=== PATIENT | male | born 1980 | race Caucasian/White ===

== ENCOUNTER 2023-12-25 15:28 | Emergency (ER) | payer OTHER ==
[2023-12-25 15:51] LABS: BASOPHILS ABSOLUTE AUTO 0.02 10^3/uL (0.00-0.10); BASOPHILS PERCENT AUTO 0.3 % (0.0-1.0); EOSINOPHILS ABSOLUTE AUTO 0.21 10^3/uL (0.10-0.30); EOSINOPHILS PERCENT AUTO 2.9 % (1.0-3.0); HEMATOCRIT 41.7 % (40.0-52.0); HEMOGLOBIN 13.7 g/dL (13.0-17.0); IMMATURE GRAN ABSOLUTE AUTO 0.03 10^3/uL (0.00-0.50); IMMATURE GRAN PERCENT AUTO 0.4 % (0.0-5.0); LYMPHOCYTES ABSOLUTE AUTO 2.71 10^3/uL (1.00-4.00); LYMPHOCYTES PERCENT AUTO 37.8 % (20.0-40.0); MEAN CORPUSCULAR HEMOGLOBIN 29.6 pg (27.0-31.0); MEAN CORPUSCULAR HGB CONC 32.9 g/dL (32.0-36.0); MEAN CORPUSCULAR VOLUME 90.1 fL (82.0-92.0); MEAN PLATELET VOLUME 10.3 fL (7.4-10.4); MONOCYTES ABSOLUTE AUTO 0.51 10^3/uL (0.10-0.80); MONOCYTES PERCENT AUTO 7.1 % (2.0-8.0); NEUTROPHILS ABSOLUTE AUTO 3.69 10^3/uL (2.50-7.00); NEUTROPHILS PERCENT AUTO 51.5 % (50.0-70.0); PLATELET COUNT,PLT 262 10^3/uL (150-400); RED BLOOD CELL COUNT 4.63 10^6/uL (4.50-6.00); WHITE BLOOD CELL COUNT,WBC 7.17 10^3/uL (5.00-10.00)
[2023-12-25 16:09] LABS: ALBUMIN 4.04 g/dL (3.40-5.00); ANION GAP 15.7 mmol/L (5-15); BILIRUBIN TOTAL 0.4 mg/dL (0.2-1.0); CARBON DIOXIDE,CO2 29.2 mmol/L (21.0-32.0); CREATININE 0.85 mg/dL (0.51-1.17); EST CRCL DRUG DOSING (CG) 133.21 mL/min; POTASSIUM,K 3.9 mmol/L (3.5-5.1); PROTEIN TOTAL,TP 7.6 g/dL (6.4-8.2)
[2023-12-25] MEDS: Sodium Chloride 0.9% 1,000 ML IV ONE (16:09)
[2023-12-25] MEDS: Diphtheria,Pertussis(Acell),Tetanus Vaccine 0.5 ML Syringe IM ONE (16:09)
[2023-12-25] MEDS: Sodium Chloride 0.9% 10 ML Syringe FLUSH PRN (16:13)
[2023-12-25] MEDS: Aspirin 81 MG Tab.Chew PO ONE (16:42)
[2023-12-25] MEDS: Sodium Chloride 0.9% 1,000 ML IV SCH (17:11)
== END 2023-12-25 18:09 ==
LOC: KA.ED 15:28
DX: S42.021A Displaced fracture of shaft of right clavicle, initial encounter for closed fracture (principal); S93.402A Sprain of unspecified ligament of left ankle, initial encounter; S70.12XA Contusion of left thigh, initial encounter; R79.89 Other specified abnormal findings of blood chemistry; Z23 Encounter for immunization; W55.22XA Struck by cow, initial encounter
CPT/HCPCS: 36415; 70450; 71045; 72170; 73000-RT; 73610-LT; 80053; 83735; 84484; 85025; 90471; 90715; 93005; 93010; 96360; 96361; 99284; 99285-25; A9270-GY; J3490; J7030